=== PATIENT | male | born 1930 | race Caucasian/White ===

== ENCOUNTER 2018-10-07 16:18 | Emergency (ER) | payer MEDICARE ==
[~2018-10-07] VITALS: Ht 162.6 cm; Wt 70.0 kg
[~2018-10-07 16:18] MED LIST: ARICEPT5 MG PO; BAYER CHEWABLE81 MG PO; DEPAKOTE ER250 MG PO; DEPAKOTE ER500 MG PO; FEXOFENADINE HC60 MG PO; FLOMAX0.4 MG PO; GABAPENTIN100 MG PO; IMDUR30 MG PO; KLONOPIN0.5 MG PO; LOPRESSOR25 MG PO; MOBIC7.5 MG PO; NAMENDA10 MG PO; NEURONTIN 300300 MG PO; NORCO 5/325 TAB1 TA1 PO; PEPCID AC20 MG PO; PLAVIX75 MG PO; PRINIVIL20 MG PO; SEROQUEL25 MG PO; SEROQUEL300 MG PO; SEROQUEL50 MG PO; VITAMIN B-12500 MCG PO; VITAMIN D31000 UNIT PO; VITAMIN D5000 UNIT PO; ZOCOR40 MG PO; ZOLOFT100 MG PO; ZYRTEC10 MG PO
[2018-10-07 16:26] VITALS: Ht 162.6 cm; Wt 70.0 kg
[2018-10-07 18:14] LABS: BASOPHILS 0.2 % (0-2); EOSINOPHILS 5.3 % (0-7); HEMOGLOBIN 9.6 g/dL (13.5-17.5); IMMATURE GRANULOCYTES 0.2 % (0-5); LYMPHOCYTES 13.9 % (15-50); MCH 27.6 pg (26.0-34.0); MCHC 33.1 g/dL (31.0-37.0); MCV 83.3 fL (80.0-100.0); MEAN PLATELET VOLUME 8.6 fL (7.4-10.4); MONOCYTES 12.3 % (2-11); NEUTROPHILS 68.1 % (40-80); PLATELET COUNT 153 10x3/uL (130-400); RBC 3.48 10x6/uL (4.20-6.10); RDW 14.6 % (11.5-14.5); WBC 6.4 10x3/uL (4.8-10.8)
[2018-10-07 18:55] LABS: ALBUMIN 2.3 g/dL (3.4-5.0); ALKALINE PHOSPHATASE 50 U/L (46-116); ALT (SGPT) 9 U/L (10-68); BILIRUBIN - TOTAL 0.41 mg/dL (0.2-1.3); CALC OSMOLALITY 269 mosm/kg (275-300); CARBON DIOXIDE 21.2 mmol/L (21.0-32.0); CHLORIDE - SERUM 102 mmol/L (98-107); GLUCOSE 92 mg/dL (74-106); POTASSIUM - SERUM 4.4 mmol/L (3.5-5.1); PROTEIN - SERUM 6.1 g/dL (6.4-8.2); SODIUM 134 mmol/L (136-145); UREA NITROGEN 17 mg/dL (7-18); eGFR NON AFRICAN AMERICAN 75 mL/min (90-120)
[2018-10-07 18:56] LABS: CALCIUM 6.9 mg/dL (8.5-10.1)
[2018-10-07 18:59] LABS: APPEARANCE CLEAR (CLEAR); BILIRUBIN NEGATIVE (NEGATIVE); COLOR YELLOW (YELLOW); GLUCOSE NEGATIVE (NEGATIVE); KETONE NEGATIVE (NEGATIVE); NITRITE NEGATIVE (NEGATIVE); PROTEIN NEGATIVE (NEGATIVE); SPECIFIC GRAVITY 1.015 (1.005-1.020); UROBILINOGEN NORMAL (NORMAL)
[2018-10-07 19:03] LABS: CREATINE KINASE 51 UL (21-232); THYROID STIMULATING HORMONE 2.66 uIU/mL (0.36-3.74); TROPONIN-I 0.038 ng/mL (0.000-0.060)
[2018-10-07] MEDS ORDERED: LEVAQUIN750 MG PO (19:34)
[2018-10-07 23:49] VITALS: BP 110/67
== END 2018-10-07 21:46 ==
LOC: D.ER 16:18
PROVIDERS: Emergency Medicine
DX: J18.9 Pneumonia, unspecified organism (principal); E83.51 Hypocalcemia; I10 Essential (primary) hypertension; Z86.79 Personal history of other diseases of the circulatory system; I44.7 Left bundle-branch block, unspecified